=== PATIENT | female | born 1950 | race American Indian/Alaskan Native ===

== ENCOUNTER 2021-08-03 20:02 | Emergency (ER) | payer MEDICARE ==
--- NOTE | 2021-08-03 20:27 | Emergency Department Report ---
ED Neuro Deficit HPI - General Chief Complaint: Neuro Symptoms/Deficit Stated Complaint: STOKE Time Seen by Provider: 08/03/21 20:16 Source: EMS Mode of arrival: Stretcher Limitations: No Limitations - History of Present Illness Initial Comments: Patient is a 71-year-old female with past medical history notable for previous heart transplant who presents emergency department complaints of strokelike symptoms. Patient apparently had right-sided deficits as well as some slurred speech that started approximately 30 minutes prior to ambulance arrival in the emergency department. Patient's family states that 45 minutes of prior to arrival was the last known normal axis when they went to get her food when they went upstairs she was found laying near her bed. EMS was called patient was transported here she was noted to be mildly tachycardic with elevated blood pressure and had a blood sugar 116. - Related Data Allergies/Adverse Reactions: Allergies Allergy/AdvReac Type Severity Reaction Status Date / Time No Known Allergies Allergy Verified 08/03/21 20:13 ED Review of Systems ROS: Stated complaint: STOKE Other details as noted in HPI Comment: Unobtainable due to pts medical conditions ED Neuro Physical Exam - General Limitations: No Limitations General appearance: alert, in no apparent distress Suspected Stroke: Yes - Head Head exam: Present: atraumatic, normocephalic - Eye Eye exam: Present: normal appearance - ENT ENT exam: Present: mucous membranes moist - Neck Neck exam: Present: normal inspection - Respiratory Respiratory exam: Present: normal lung sounds bilaterally - Cardiovascular Cardiovascular Exam: Present: regular rate, normal rhythm. Absent: systolic murmur, diastolic murmur, rubs, gallop - GI/Abdominal GI/Abdominal exam: Present: soft, normal bowel sounds - Rectal Rectal exam: Present: deferred - Extremities Exam Extremities exam: Present: normal inspection - Back Exam Back exam: Present: normal inspection - Neurological Exam Neurological exam: Present: alert - NIHSS Assessment Interval: Baseline 1a. Level of Consciousness: alert/keenly responsive 1b. LOC Questions: answers no questions correctly 1c. LOC Commands: performs 1 task correctly 2. Best Gaze: normal 3. Visual: no visual loss 4. Facial Palsy: normal symmetrical movement 5b. Motor Arm Right: no drift 5a. Motor Arm Left: no drift 6a. Motor Leg Left: no drift 6b. Motor Leg Right: no drift 7. Limb Ataxia: absent 8. Sensory: normal 9. Best Language: mild/moderate aphasia 10. Dysarthria: mild/moderate dysarthria 11. Extinction/Inattention: no abnormality Total Score: 5 Stroke Severity: Moderate Stroke - Psychiatric Psychiatric exam: Present: other (unable to assess) - Skin Skin exam: Present: warm, dry, intact, normal color. Absent: rash - Lab Data Result diagrams: 08/03/21 20:35 08/03/21 20:35 Lab Results 08/03/21 08/03/21 08/03/21 Range/Units 20:17 20:35 20:35 WBC 9.4 (4.5-11.0) K/mm3 RBC 4.40 (3.65-5.03) M/mm3 Hgb 13.4 (10.1-14.3) gm/dl Hct 41.3 (30.3-42.9) % MCV 94 (79-97) fl MCH 30 (28-32) pg MCHC 32 (30-34) % RDW 13.2 (13.2-15.2) % Plt Count 224 (140-440) K/mm3 PT 13.2 (12.2-14.9) Sec. INR 0.90 (0.87-1.13) APTT 28.3 (24.2-36.6) Sec. Thrombin Time 19.6 (15.1-19.6) Sec. Sodium (137-145) mmol/L Potassium (3.6-5.0) mmol/L Chloride (98-107) mmol/L Carbon Dioxide (22-30) mmol/L Anion Gap mmol/L BUN (7-17) mg/dL Creatinine (0.6-1.2) mg/dL Estimated GFR ml/min BUN/Creatinine Ratio % Glucose (65-100) mg/dL POC Glucose 160 H (70-105) mg/dL Calcium (8.4-10.2) mg/dL Total Bilirubin (0.1-1.2) mg/dL AST (5-40) units/L ALT (7-56) units/L Alkaline Phosphatase (35-129) units/L Total Creatine Kinase (30-135) units/L CK-MB (CK-2) (0.0-4.0) ng/mL CK-MB (CK-2) Rel Index (0-4) Troponin T (0.00-0.029) ng/mL Total Protein (6.3-8.2) g/dL Albumin (3.9-5) g/dL Albumin/Globulin Ratio % /18/ Range/Units 20:35 WBC (4.5-11.0) K/mm3 RBC (3.65-5.03) M/mm3 Hgb (10.1-14.3) gm/dl Hct (30.3-42.9) % MCV (79-97) fl MCH (28-32) pg MCHC (30-34) % RDW (13.2-15.2) % Plt Count (140-440) K/mm3 PT (12.2-14.9) Sec. INR (0.87-1.13) APTT (24.2-36.6) Sec. Thrombin Time (15.1-19.6) Sec. Sodium 135 L (137-145) mmol/L Potassium 3.6 (3.6-5.0) mmol/L Chloride 99.7 (98-107) mmol/L Carbon Dioxide 22 (22-30) mmol/L Anion Gap 17 mmol/L BUN 14 (7-17) mg/dL Creatinine 0.6 (0.6-1.2) mg/dL Estimated GFR > 60 ml/min BUN/Creatinine Ratio 23 % Glucose 171 H (65-100) mg/dL POC Glucose (70-105) mg/dL Calcium 8.5 (8.4-10.2) mg/dL Total Bilirubin 0.60 (0.1-1.2) mg/dL AST 11 (5-40) units/L ALT 8 (7-56) units/L Alkaline Phosphatase 109 (35-129) units/L Total Creatine Kinase 58 (30-135) units/L CK-MB (CK-2) 1.2 (0.0-4.0) ng/mL CK-MB (CK-2) Rel Index 2.0 (0-4) Troponin T < 0.010 (0.00-0.029) ng/mL Total Protein 6.3 (6.3-8.2) g/dL Albumin 3.7 L (3.9-5) g/dL Albumin/Globulin Ratio 1.4 % - EKG Data -: EKG Interpreted by Sc EKG shows normal: sinus rhythm Rate: normal - Radiology Data Radiology results: report reviewed, image reviewed - Medical Decision Making She has a 71-year-old female presents emergency department complaint of acute onset of right-sided weakness and trouble speaking concerning for acute stroke. A stroke alert is called and patient is noted to have a distal left M2 occlusion. Initial stroke score is noted to be 9. TPA as recommended by both the physician that has accepted transfer to [place], Dr. Blas as well as the physician, telemetry neurology. I have attempted to reach patient's family but prior to giving TPA however the number that is in the chart does not work and patient's family has not arrived. Patient does not appear to be on any blood thinners as EMS did not mention any conditions that require blood thinners nor any medications that require blood thinners. Given this I have ordered TPA patient is to be transferred to [place] for further management of her large vessel occlusion. - Thrombolytic Inclusion/Exclusion Thrombolytic Inclusion Criteria: NIH Stroke Scale Deficit Critical care attestation.: If time is entered above; I have spent that time in minutes in the direct care of this critically ill patient, excluding procedure time. ED Disposition Clinical Impression: Acute stroke due to ischemia Disposition: ADMITTED INPATIENT Is pt being admited?: Yes Does the pt Need Aspirin: No Condition: Stable
--- NOTE | 2021-08-03 20:38 | Emergency Department Report ---
Blank Doc - Documentation Documentation: [facility] Consult Note # Demographics Consult Type: Acute Stroke Level 1 (0-4.5 hrs) Patient Location: Emergency Room First Name: Bertha Last Name: Zander Gender: Female Facility: [facility] Time of Initial Page ( Time): 08/03/2021, 19:51 Time of Return Call ( Time): 08/03/2021, 19:51 # HPI History: Family went to get food, then was found down with decreased LOC. has right sided weakness in the field by report. no weakness in the ED, only with confusion Possible Thrombolytic candidate: ED to confirm lack of contraindications with family as pt is not able to provide at this time Context/Pre-existing conditions: unknown # Scores Time of exam and NIHSS (): 08/03/2021, 20:20 Level of Consciousness 1a: [0] = Alert; keenly responsive LOC Questions 1b: [2] = Answers neither correctly LOC Commands 1c: [0] = Performs both tasks correctly Best Gaze 2: [0] = Normal Visual 3: [0] = No visual loss Facial Palsy 4: [1] = Minor paralysis Motor Arm Left 5a: [0] = No drift Motor Arm Right 5b: [0] = No drift Motor Leg Left 6a: [2] = Some effort against gravity Motor Leg Right 6b: [3] = No effort against gravity Limb Ataxia 7: [0] = Absent Sensory 8: [0] = Normal Best Language 9: [2] = Severe aphasia Dysarthria 10: [1] = Acis-yj-yasqogsc dysarthria Extinction and Inattention 11: [0] = No abnormality NIHSS Total: 11 # Data Head CT: no bleed preliminarily reviewed by me, please refer to radiology read for official reading CTA Head: MCA occlusion preliminarily reviewed by me, please refer to radiology read for official reading distal left M2 # Assessment Impression: Ischemic Stroke (Acute) # Plan Thrombolytic/Intervention: IV thrombolytic and possible IA candidate Thrombolytic Dosing: IV alteplase 0.9 mg/kg, max dose 90 mg; 10% of dose given over 1 minute IVP, remaining 90% given as infusion over 1 hour Possible IA Candidate: no signs and symptoms of LVO Time IV Thrombolytic Recommended (): 08/03/2021, 20:36 Blood Pressure Management: nicardipine labetolol Labs: hemoglobin A1c lipid panel Imaging: (urgency: STAT): CT Angiogram Head and CT Angiogram Neck AND call back with results if abnormal Imaging: (urgency: routine): MRI Brain without contrast Diagnostic Test: echo without bubble study Therapy/Evaluation: NPO until swallow evaluation PT/OT evaluation speech/swallow consultation Medication: start statin with goal of LDL < 70 DVT Prophylaxis: SCD Thrombolytic Administration Recommendations: Unable to obtain informed consent due to medical condition. No family available. In my opinion, benefits of IV thrombolytic therapy outweigh risks. I have collected independent history specific to time last normal or last known well. We have collaborated with the ED provider and at this time, we have the most current timeline with the information that is available. BP goal< 180/105 for 24hrs post Thrombolytic administration Use Labetolol 10-20mg IV prn or Nicardipine gtt to maintain BP parameters No antiplatelets or anticoagulants for next 24 hrs unless indicated for emergent IA procedure or other life threatening situation ICU admission Call back if there is any decline in neurological condition Other: LDL < 70 If patient has any neurological deterioration please call me back immediately permissive hypertension telemetry monitoring I have discussed my recommendations with the referring provider # Logistics Telemedicine: Interactive 2 way audio and visual telecommunication technology was utilized during this visit
[2021-08-03 20:44] LABS: Hematocrit 41.3 % (30.3-42.9); Hemoglobin 13.4 gm/dl (10.1-14.3); Mean Corpuscular HGB Conc 32 % (30-34); Mean Corpuscular Volume 94 fl (79-97); Platelet Count 224 K/mm3 (140-440); Red Cell Distribution Width 13.2 % (13.2-15.2)
--- NOTE | 2021-08-03 20:46 | Cat Scan Report ---
CT head/brain wo con INDICATION / CLINICAL INFORMATION: 71 years Female; Stroke symptoms. TECHNIQUE: Routine CT head without contrast. All CT scans at this location are performed using CT dos e reduction for ALARA by means of automated exposure control. COMPARISON: None. FINDINGS: BRAIN / INTRACRANIAL CONTENTS: The motion degrades the image quality. However, there is extensive cer ebral white matter disease most consistent with microvascular angiopathy. However, there appears be m ore subtle decrease attenuation involving left parietal lobe with mild effacement of the sulci indica tive of evolving infarct. There may also be mild changes involving the left precentral gyrus. There is no clear CT evidence of acute intracranial hemorrhage. There is mild cerebral atrophy with a ssociated mild prominence of the ventricular system. There is relative increased attenuation of poste rior insular branches of the left MCA concerning for a thrombus given the above findings. ORBITS: No significant abnormality of visualized orbits. SINUSES / MASTOIDS: There is mild opacification along the posterior right sphenoid sinus. CRANIOCERVICAL JUNCTION: No significant abnormality. ADDITIONAL FINDINGS: None. IMPRESSION: 1. The findings are indicative of subtle edema involving left parietal lobe indicative of evolving ac mane infarct as detailed above. Additionally, there is relative increased attenuation within the poste rior insular branches of the left ICA concerning for associated thrombus. 2. There is otherwise extensive microvascular angiopathy without clear CT evidence of acute intracran ial hemorrhage. The study was specified as code stroke and called emergently to Dr. Jones in the ER at 7:40 PM [facility] standard time. Signer Name: Vasyl Anderson MD Signed: 08/03/2021 8:42 PM Workstation Name: [id number]
[2021-08-03 20:56] LABS: Creatine Kinase MB 1.2 ng/mL (0.0-4.0)
[2021-08-03 20:57] LABS: Alanine Aminotransferase 8 units/L (7-56); Albumin 3.7 g/dL (3.9-5); Blood Urea Nitrogen 14 mg/dL (7-17); Calcium 8.5 mg/dL (8.4-10.2); Hemolysis Index 10
[2021-08-03] MEDS ORDERED: ALTEPLASE 100 MG INJ KIT IV ONE ×2 (21:01)
[2021-08-03 21:04] LABS: INR 0.9 (0.87-1.13)
[2021-08-03 21:05] LABS: Partial Thromboplastin Time 28.3 Sec. (24.2-36.6); Thrombin Time 19.6 Sec. (15.1-19.6)
[2021-08-03 21:08] LABS: BUN/Creatinine Ratio 23
--- NOTE | 2021-08-03 21:09 | Cat Scan Report ---
CT angio neck INDICATION / CLINICAL INFORMATION: 71 years Female; stroke sx. TECHNIQUE: Thin cut axial images obtained through the head during IV bolus contrast administration. S agittal, coronal, and 3 plane MIP reconstructions performed by the technologist. NASCET type criteria used evaluate stenoses. All CT scans at this location are performed using CT dose reduction for ALAR A by means of automated exposure control. COMPARISON: None available FINDINGS: CAROTID ARTERIES: There is atherosclerotic calcification involving proximal left ICA with approximate ly 50% stenosis by NASCET criteria. There is mild calcification involving proximal right ICA without significant stenosis. There is developmental tortuosity of the more distal cervical ICAs without foca l narrowing.. VERTEBRAL ARTERIES: There is calcification involving proximal left vertebral artery. However, there i s no clear evidence of significant focal stenosis. There is also calcification at the origin of the r ight vertebral artery with moderate to stenosis. ARCH: There is calcification involving aortic arch and origins of the arch vessels. However, there is no significant stenosis by NASCET criteria. ADDITIONAL FINDINGS: There is mild heterogeneous prominence of the thyroid gland which is nonspecific though may reflect multinodular goiter; correlation be needed. There are multilevel advanced degener ative changes involving cervical spine. IMPRESSION: There is atherosclerotic calcification involving the proximal left ICA with 50% stenosis by NASCET cr iteria. 2. There is moderate stenosis involving origin of the right vertebral artery. Signer Name: Vasyl Anderson MD Signed: 08/03/2021 9:04 PM Workstation Name: [id number]
--- NOTE | 2021-08-03 21:14 | XRay Report ---
CHEST 1 VIEW 08/03/2021 8:53 PM INDICATION / CLINICAL INFORMATION: Stroke workup. COMPARISON: 11/23/11. FINDINGS: SUPPORT DEVICES: None. HEART / MEDIASTINUM: Median sternotomy. Borderline cardiomegaly. Pulmonary vasculature is normal for technique. LUNGS / PLEURA: No significant pulmonary or pleural abnormality. No pneumothorax. ADDITIONAL FINDINGS: No significant additional findings. IMPRESSION: No acute abnormality or significant change. Signer Name: Jhonathan Brady MD Signed: 08/03/2021 9:10 PM Workstation Name: [id number]
--- NOTE | 2021-08-03 21:18 | Cat Scan Report ---
CT angio head INDICATION / CLINICAL INFORMATION: 71 years Female; stroke sx. TECHNIQUE: Thin cut axial images obtained through the head during IV bolus contrast administration. S agittal, coronal, and 3 plane MIP reconstructions performed by the technologist. NASCET type criteria used evaluate stenoses. Automated exposure control utilized for radiation reduction purposes. COMPARISON: None available. FINDINGS: INTERNAL CAROTID ARTERIES: There is mild atherosclerotic calcification involving intracranial ICAs wi thout significant focal stenosis by NASCET criteria. VERTEBROBASILAR SYSTEM: There is developmental tortuosity of the vertebrobasilar system. There is no significant focal stenosis. CEREBRAL ARTERIES: There is occlusion of a posterior branch within the left sylvian fissure. There ap pear to be evolving infarct particularly within the left parietal lobe on the accompanying earlier CT at. There is no significant stenosis or evidence of large vessel occlusion involving right MCA or po sterior cerebral artery branches. There is developmental hypoplasia the A1 segment of the left IGNACIA. Otherwise, the anterior cerebral ar teries appear unremarkable. ANEURYSM: There is a smaller outpouching along the anterior right ICA directed laterally measuring 2 to 3 mm compatible with small aneurysm. This finding appears to arise near the level of the origin of the right ophthalmic artery. Additionally, this mild ectasia of the distal right ICA. There is no fu rther CTA evidence of intracranial aneurysm. ADDITIONAL FINDINGS: Remainder of the surrounding soft tissues are grossly normal. IMPRESSION: There is occlusion of a posterior branch of the left MCA within the left sylvian fissure as detailed above with evolving infarct along the left frontoparietal junction which correlates with the earlier CT. 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 Signer Name: Vasyl Anderson MD Signed: 08/03/2021 9:14 PM Workstation Name: [id number]
[2021-08-03] MEDS: SODIUM CHLORIDE 0.9% 50 ML IVPB IV ONE ×2 (21:24→22:24)
[2021-08-03 21:47] LABS: Total Cells Counted 100
[2021-08-03 21:48] LABS: Anisocytosis 1+; Platelet Estimate Consistent w Auto
[2021-08-04 00:22] VITALS: BP 128/79
--- NOTE | 2021-08-04 12:03 | Electrocardiograph Report ---
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
== END 2021-08-03 23:35 | disposition admitted as inpatient to this hospital (09) ==
LOC: ED 20:02
DX: I63.50 Cerebral infarction due to unspecified occlusion or stenosis of unspecified cerebral artery (principal)
CPT/HCPCS: 36415; 70450; 70496; 70498; 71045; 80053; 82550; 82553; 82962; 84484; 85007; 85025; 85610; 85670; 85730; 93005; 96360; 99285; J2997; Q9967